=== PATIENT | female | born 1955 | race Caucasian/White ===

== ENCOUNTER 2021-08-09 01:16 | Day surgery (SDC) | payer BC, SELFPAY ==
[2021-07-23 16:07] VITALS: BMI 24.9
[2021-08-09 09:56] VITALS: BP 145/75; PULSE 94; RESP 20; TEMP 36.6; O2SAT 100; BMI 24.8
[2021-08-09] MEDS: LACTATED RINGERS 1,000 ML 150 ML IV CONT (10:04)
[2021-08-09 10:07] LABS: Glucose Point of Care 169 mg/dl (65-105)
--- NOTE | 2021-08-09 10:20 | WPDANESEPPF ---
Anes - Initial Pre Proc Eval Procedure: Operation Date: 08/09/21 11:00 Proposed Procedures p Screening Colonoscopy - Ed Nj MD Date/Time: 08/09/21 10:20 Surgeon: Ed Nj MD Pre Op Diagnosis: neoplasm screening Patient Data Age: 66 Gender: F Height: 1.68 m Weight: 69.8 kg Last Vital Signs Temp 36.6 C 08/09/21 09:56 Pulse 94 08/09/21 09:56 Resp 20 08/09/21 09:56 BP 145/75 H 08/09/21 09:56 Pulse Ox 100 08/09/21 09:56 Allergies Allergy/AdvReac Type Severity Reaction Status Date / Time metformin AdvReac Mild severe GI Verified 08/09/21 09:54 issues MORPHINE Allergy Unknown vomiting Uncoded 08/09/21 09:54 Home Medications Medication Instructions Recorded Confirmed Type amitriptyline 25 mg tablet 25 mg PO QHS 12/11/20 07/23/21 History atorvastatin 40 mg tablet 40 mg PO DAILY 12/11/20 07/23/21 History repaglinide 0.5 mg tablet 0.5 mg PO TID 12/11/20 07/23/21 History semaglutide 1 mg/dose (2 mg/1.5 1 mg SUBCUT WEEKLY 12/11/20 07/23/21 History mL) subcutaneous pen injector cholecalciferol (vitamin D3) 25 mcg PO DAILY 07/23/21 07/23/21 History [Vitamin D3] xqnhxyvo-pgz-petd-vitamin K [Adult 1 tablet PO DAILY 07/23/21 07/23/21 History Multivitamin with Iron] Laboratory Tests 08/09/21 10:03 POC Capillary Glucose 169 mg/dl H mg/dl (65-105) Patient hx anesthesia problems: none Family hx anesthesia problems: none Results Review: All pre-operative results and documents have been reviewed as part of the pre-operative evaluation. [facility] Past Medical History Medical History (Updated 08/09/21 @ 10:22 by Ed Nj MD) Asthma Diabetes Hemoglobin A1C between 7% and 9% indicating borderline diabetic control September 2020 A1cc was 7.6 Hyperlipidemia Surgical History Surgical History H/O oophorectomy left side H/O shoulder surgery R, 2003, 2019 Social History Social History Smoking status: Never smoker Living arrangements: with family Gender identity (if verbalized by the patient): Female Spiritual care concerns: No Anes - Eval Final PreProcedure Day of Procedure 08/09/21 10:20 Patient weight: normal Heart: regular rate and rhythm Lungs: clear to auscultation Airway: Mallampati scale class II Neurological: alert and oriented Last oral intake: >/= 8 hours ASA classification: III Emergent: no Anesthetic plan: proceed Anesthesia type and monitoring: general GIVS and standard monitoring Results Review: All pre-operative results and documents have been reviewed as part of the pre-operative evaluation. Informed Consent: The patient's anesthetic plan and its attendant risks and benefits were discussed with the patient/family/POA. Questions were solicited and answers provided to the satisfaction of the patient/family/POA.
--- NOTE | 2021-08-09 10:21 | P.CONGI_ITS ---
Assessment and Plan Assessment and plan (1) History of colon polyps: Code(s): Z86.010 - Personal history of colonic polyps Status: Acute Assessment and Plan: Patient has a distant history of colon polyps. She presents today for Surveillance colonoscopy. Further recommendations will be given after colonoscopy. GI Consult Note Consult date/time: 08/09/21 10:21 HPI: Jaycee Mendenhall is a 66 year old female Presents for screening colonoscopy. Patient reports a distant history of colon polyps more than 10 years ago. She reports that her current weight appetite and bowel movements are normal. She denies abdominal pain. She has had no bleeding. Family history is noncontribut ory. The patient desires neoplasia screening at this time. Review of Systems Review of Systems: All systems reviewed & are unremarkable except as noted in HPI and below PMFSH Past Medical History Medical History (Updated 08/09/21 @ 10:22 by Ed Nj MD) Asthma Diabetes Hemoglobin A1C between 7% and 9% indicating borderline diabetic control September 2020 A1cc was 7.6 Hyperlipidemia Surgical History Surgical History H/O oophorectomy left side H/O shoulder surgery R, 2003, 2019 Social History Social History Smoking status: Never smoker Living arrangements: with family Gender identity (if verbalized by the patient): Female Spiritual care concerns: No Meds Home Medications and Allergies Home Medications Medication Instructions Recorded Confirmed Type amitriptyline 25 mg tablet 25 mg PO QHS 12/11/20 07/23/21 History atorvastatin 40 mg tablet 40 mg PO DAILY 12/11/20 07/23/21 History repaglinide 0.5 mg tablet 0.5 mg PO TID 12/11/20 07/23/21 History semaglutide 1 mg/dose (2 mg/1.5 1 mg SUBCUT WEEKLY 12/11/20 07/23/21 History mL) subcutaneous pen injector cholecalciferol (vitamin D3) 25 mcg PO DAILY 07/23/21 07/23/21 History [Vitamin D3] qwrndxmm-mwh-kuph-vitamin K [Adult 1 tablet PO DAILY 07/23/21 07/23/21 History Multivitamin with Iron] Allergies Allergy/AdvReac Type Severity Reaction Status Date / Time metformin AdvReac Mild severe GI Verified 08/09/21 09:54 issues MORPHINE Allergy Unknown vomiting Uncoded 08/09/21 09:54 Vital Signs Vital Signs - 24 hr 08/09/21 09:56 Temperature 97.8 F Pulse Rate 94 Respiratory Rate 20 Blood Pressure 145/75 H Pulse Oximetry 100 Exam Narrative: Physical exam reveals patient to be alert. Vital signs stable. HEENT exam is unremarkable. Patient is anicteric. Lungs are clear to auscultation and percussion. Heart is without murmur or extra sounds. Abdominal exam bowel sounds are present soft nontender with no organomegaly. Digital external rectal exam is normal.
[2021-08-09 10:43] VITALS: BP 113/68; PULSE 76; RESP 22; O2SAT 97
[2021-08-09 10:53] VITALS: BP 107/68; PULSE 71; RESP 17; O2SAT 97
[2021-08-09 11:05] VITALS: BP 122/67; PULSE 75; RESP 18; O2SAT 100
== END 2021-08-09 11:08 | disposition home or self-care (01) ==
PROVIDERS: PCP Internal Medicine; Visit Provider Internal Medicine Gastroenterology
PROC: 0DJD8ZZ Inspection of Lower Intestinal Tract, Via Natural or Artificial Opening Endoscopic (ICD-10-PCS; CPT 45378; principal; 2021-08-09 11:00)
DX: Z12.11 Encounter for screening for malignant neoplasm of colon (principal); K64.8 Other hemorrhoids; Z86.010 Personal history of colon polyps; E11.9 Type 2 diabetes mellitus without complications; E78.5 Hyperlipidemia, unspecified; Z79.899 Other long term (current) drug therapy
CPT/HCPCS: 45378; 82948; J2704; J7120

== ENCOUNTER 2021-12-27 07:53 | Outpatient (CLI) | payer BC, SELFPAY ==
--- NOTE | ~2021-12-27 | MM_ITS ---
EXAMINATION: MM screening erica BI w ezequiel HISTORY: Screening mammogram TECHNIQUE: Craniocaudal and mediolateral oblique 3-D tomosynthesis images were obtained and synthetic 2-D images were generated. CAD analysis was submitted and interpreted. COMPARISON: December 09, 2016, July 14, 2014, March 20, 2012 bilateral screening mammogram examinations BREAST PARENCHYMAL COMPOSITION: There are scattered areas of fibroglandular density. FINDINGS: There is no evidence of suspicious mass, calcification, or architectural distortion to sugg est malignancy in either breast. There has been no suspicious interval change. IMPRESSION: 1. No mammographic evidence of malignancy. 2. Recommend routine screening mammography in one year. BI-RADS Category 1: Negative Reviewed, dictated and finalized at location A.
== END 2021-12-27 07:54 | disposition home or self-care (01) ==
PROVIDERS: PCP Internal Medicine; Visit Provider Obstetrics & Gynecology
DX: Z12.31 Encounter for screening mammogram for malignant neoplasm of breast (principal)
CPT/HCPCS: 77063; 77067

== ENCOUNTER 2022-08-12 15:34 | Emergency (ER) | payer BC, SELFPAY ==
--- NOTE | ~2022-08-12 | XR_ITS ---
XR chest 2V 08/12/2022 16:29 Indication: Nonproductive cough Procedure: 2 view chest Comparison: No prior studies for comparison. Findings: Heart size normal. No focal air space disease, pulmonary edema, pleural effusion or suspect ed pneumothorax. There is a calcified granuloma in the left mid thorax. Impression: 1: No acute cardiopulmonary disease. Reviewed, dictated and finalized at location A. NESS DEVELOPMENT RECRUITER Impression: 1: No acute cardiopulmonary disease.
[2022-08-12 16:07] VITALS: BP 134/73; PULSE 87; RESP 18; TEMP 36.2; O2SAT 99
--- NOTE | 2022-08-12 16:12 | ED.URI ---
HPI - URI/Sore Throat General Chief Complaint: Upper Respiratory Infection Stated Complaint: cough,sorethroat Time Seen by Provider: 08/12/22 16:12 Source: patient Mode of arrival: ambulatory Limitations: no limitations History of Present Illness HPI Narrative: 67-year-old female presents with complaint of cough for 3 weeks. Reports that cough is dry, worse at night Or with activities. Reports history of seasonal asthma. Last had a Symbicort inhaler approximately 2 years ago. Denies shortness of breath. Using Delsym with no relief of cough. All systems reviewed and negative except as noted above. Related Data Home Medications Medication Instructions Recorded Confirmed amitriptyline 25 mg tablet 25 mg PO QHS 12/11/20 08/12/22 atorvastatin 40 mg tablet 40 mg PO DAILY 12/11/20 08/12/22 repaglinide 0.5 mg tablet 0.5 mg PO TID 12/11/20 08/12/22 semaglutide 1 mg/dose (2 mg/1.5 1 mg subcut WEEKLY 12/11/20 08/12/22 mL) subcutaneous pen injector (Ozempic) cholecalciferol (vitamin D3) 25 25 mcg PO DAILY 07/23/21 08/12/22 mcg (1,000 unit) tablet (Vitamin D3) multivitamin h-fpqbyovt-cdoprtu 1 tablet PO DAILY 07/23/21 08/12/22 fumarate 18 mg-vitamin K 25 mcg tablet Allergies Allergy/AdvReac Type Severity Reaction Status Date / Time metformin AdvReac Intermediate severe GI Verified 08/12/22 15:50 issues MORPHINE AdvReac Intermediate vomiting Uncoded 08/12/22 15:50 Review of Systems Review of Systems: CONSTITUTIONAL: Denies fever, chills, or sweats. EYES: Denies visual changes, redness, or discharge. ENT: Denies rhinorrhea, congestion, sore throat, or otalgia. CARDIOVASCULAR: Denies chest pain, palpitations, or edema. RESPIRATORY: Reports dry cough. Denies dyspnea. GASTROINTESTINAL: Denies abdominal pain, nausea, vomiting, or diarrhea. GENITOURINARY: Denies dysuria or hematuria. SKIN: Denies rash or itching. MUSCULOSKELETAL: Denies back pain, joint pain, or myalgia. NEUROLOGIC: Denies headache, numbness, or weakness. PSYCHIATRIC: Denies anxiety or depression. All other systems reviewed are negative, except as documented in HPI. [facility] Past Medical History Medical History Asthma Diabetes Hemoglobin A1C between 7% and 9% indicating borderline diabetic control September 2020 A1cc was 7.6 Hyperlipidemia Olecranon bursitis, left elbow Surgical History Surgical History H/O oophorectomy left side H/O shoulder surgery R, 2019 Social History Social History Smoking status: Never smoker Gender identity (if verbalized by the patient): Female Spiritual care concerns: No Comments At time of signature, agree with nursing past medical, surgical, social and family history. There is no relevant family history pertinent to the presenting complaint. Exam Narrative: GENERAL: This is a well-nourished, well-developed patient, in no apparent distress. HEAD: normocephalic, atraumatic. EYES: PERRL. Sclera clear/white. Vision is grossly intact. EARS: External ears normal NOSE: External nose normal NECK: Neck supple, non-tender without lymphadenopathy, masses or thyromegaly. CARDIOVASCULAR: Regular rate and rhythm without murmurs, gallops, or rubs. RESPIRATORY: Clear to auscultation. Breath sounds equal bilaterally. No wheezes, rales, or rhonchi. SKIN: warm, Dry, intact with no suspicious lesions or rash, good texture and turgor. NEURO: awake, alert, and oriented to person, place and time. There were no obvious focal neurologic abnormalities. EXTREMITIES: No joint tenderness, effusion, or edema noted. Course Course Level of Care: Express Care Visit Vital Signs Vital signs: Vital Signs Temperature 36.2 C L 08/12/22 16:07 Pulse Rate 87 08/12/22 16:07 Respiratory Rate 18 08/12/22 16:07 Blood Pressure 134/73
== END 2022-08-12 16:50 | disposition home or self-care (01) ==
PROVIDERS: Emergency Provider Nurse Practitioner Family; PCP Internal Medicine
DX: J20.9 Acute bronchitis, unspecified (principal); J45.909 Unspecified asthma, uncomplicated; E11.9 Type 2 diabetes mellitus without complications; E78.5 Hyperlipidemia, unspecified
CPT/HCPCS: 71046; 99213; G0463

== ENCOUNTER 2025-06-21 14:35 | Outpatient (CLI) | payer BC, SELFPAY ==
--- OUTSIDE RECORDS SUMMARY | 2022-06-03 03:00 | XMS_ITS | Continuity of Care Document ---
Author Organization [facility] Address [address] [place] [address] Phone Care Team Providers Care Dip Lube Operator Name Role Phone Uyen Carlin Allergies, Adverse Reactions, Alerts Substance Reaction Status Criticality morphine Active No Information Medications Medication Instructions Dosage Effective Dates (start - stop) Status Comments repaglinide 0.5 mg tablet - Active celecoxib 200 mg capsule - Active atorvastatin 20 mg tablet - Active amitriptyline 25 mg tablet - Active Boostrix Tdap 2.5 Lf unit-8 mcg-5 Lf/0.5 mL intramuscular syringe - Active Ultracet 37.5 mg-325 mg tablet take 1 tablet by oral route every 4 - 6 hours as needed, for up to 5 days; do not exceed 8 tablets in 24hrs as needed for pain 1 tablet - No Longer Active Surgery date: May 19, 2022. Ultracet 37.5 mg-325 mg tablet take 1 tablet by oral route every 4 - 6 hours as needed, for up to 5 days; do not exceed 8 tablets in 24hrs as needed for pain 1 tablet - No Longer Active Surgery date: April 29, 2022. Procedures Procedure Date X-ray exam finger(s), minimum 2 views Se p-27-2022 Global/Postop followup visit [facility] She[facility] X-ray exam finger(s), minimum 2 views Au Office/outpatient visit,gil ross 2021 Advance Directives Directive Yes / No Effective Date File Name No Information Encounters Encounter Description Practice Location Reason(s) For Visit Diagnoses Date Provider Providers Copied on Encounter [facility], [address], [id number], [place] tel:[phone] [facility] Right thumb (chief complaint) Ganglion, right hand May- 2 Guadalupe Qiu. [address], [id number], [place]. tel:[phone] [facility], [address], [id number], [place] tel:[phone] [facility] No Information May- 2 Linda Drake. [address] [address], [place], [place], [id number], [place]. tel:[phone] [facility], [address], [id number], [place] tel:[phone] [facility] No Information May- 2 Linda Drake. [address], [id number], [place]. tel:[phone] Office/outpat ient visit,gil [facility], [address] [address], [place], [place], [id number], [place] tel:[phone] [facility] Right thumb (chief complaint) Pain in right finger(s)Thelma glion, right hand 2 Guadalupe Qiu. [address] [facility] [address], [place], [place], [id number], [place]. tel:[phone] Family History Family Member Type Diagnosis Age At Onset No Information Immunizations Vaccine Date Status Comments No Known Immunization histor y Payers Payer name Insurance type Covered constitution party ID Gilbert long(s) Albert Briceño [facility] [id number] Social History Type Description Quantity Date Captured Comments Alcohol Use Details Unknown Caffeine Use Details Unknown Tobacco Use Status No Information Smoking Status No Information Sex Female Chief Complaint And Reason For Visit From encounter dated '06/03/2022 08:00'. Right thumb (chief complaint). Description: Jaycee is 2 weeks out from an excision of a right thumb mucous ganglion cyst on May 19, 2022. She returns for follow-up. Reason For Referral Reason For Referral No Information History Of Present Illness Encounter Date Complaint History Of Prese nt Illness Right thumb Jaycee is 2 weeks out from an excision of a right thumb mucous ganglion cyst on May 19, 2022. She returns for follow-up. Right thumb Jaycee is seen in the office today as a new patient. She presents with a right thumb cyst. She first noticed the mass in Fall 2020. 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 In September 2021 he cauterized the cyst sac and sutured the wound closed. The cyst returned a few weeks later. The cyst intermittently becomes erythematous and painful. The size fluctuates. The mass is painful if she bumps it. She does not recall a specific injury. She presents to the office today for evaluation and treatment of her right thumb cyst. Functional Status Date Functional Assessmen t No Information Instructions Date Instruction Additional Infor mation No Information Assessments Type Assessment Date assessment Ganglion, right hand impression The sutures were rem raisa in the office today. She may advancer her activities as tolerated. She will return to the office as needed. She may call with any questions or concerns. Patient Care Teams Name Effective Dates (start - stop) Status Members No Information
--- OUTSIDE RECORDS SUMMARY | 2024-02-08 05:00 | XMS_ITS ---
[facility] Address [address] [place] [address] Care Team Providers Care Director Of Sustainability Programs Name Role Phone Dr. Zeke Bennett Primary Care Provider [phone] REASON FOR VISIT 3 month f/u Social History Sex Assigned At : Social History Observation Description Sex Assigned At Female Encounters Encounter Location Date Provider Diagnosis [address] [address] 02/08/2024 Zeke Bennett Plan Of Treatment Next Appt Details Provider Name:Zeke colón, 10/02/2025 02:30:00 PM, [address] [place] [address], [phone], Progress Notes * Addie ARZATEaDOB:1955 ( 70 yo F)Acc No.[id number]:02/08/2024 Annual Physical Patient: Jaycee MORATAYA Provider: Carlos Bennett DO :1955 A ge:69 Y S ex:Female Date:02/08/2024 Address:[address] [place] [id number] Subjective: * Chief Complaints: * 1 . 3 month f/u. * Medical History: * Implants: Objective: * Vitals: Assessment: Plan: * Treatment: * Billing Information: * Visit Code: * Procedure Codes: Care Plan Details* * Electronic signature of Dr. Zeke Bennett DO on 06/21/2025 at 04:52 PM CDT Sign off status: Pending * Provider: Carlos Bennett DO Date: 0 02/08/2024 Generated for Bryant mcdonald/Sandra/Alireza on: 1 04:52 PM CDT
--- NOTE | ~2025-06-21 | MM_ITS ---
EXAMINATION: MM screening erica BI w ezequiel HISTORY: Screening mammogram TECHNIQUE: Craniocaudal and mediolateral oblique 3-D tomosynthesis images including implant displaced views were obtained and synthetic 2-D images were generated. CAD analysis was submitted and interpreted. COMPARISON: 12/27/2021 BREAST PARENCHYMAL COMPOSITION: There are scattered areas of fibroglandular density. FINDINGS: There is no evidence of suspicious mass, calcification, or architectural distortion in either breast to suggest malignancy. There has been no significant interval change. IMPRESSION: 1. No mammographic evidence of malignancy. Recommend routine screening mammography in one year. BI-RADS Category 1: Negative 11 Reviewed, dictated and finalized at location Q. IMPRESSION: 1. No mammographic evidence of malignancy. Recommend routine screening mammogra phy in one year. BI-RADS Category 1: Negative 11
--- OUTSIDE RECORDS SUMMARY | 2025-06-21 16:52 | XMS_ITS | Encounter Summary ---
Author Organization [facility] Address [address] [place] [address] Care Team Providers Care Control Systems Technician Name Role Phone Maninder Danielson MD Primary Care Provider U Betty Tomas NP Primary Care Provider [phone] Encounter Details Date Type Department Care Team (Late st Contact Info) Description 11/29/[address] [facility] [id number] [place] [phone] [facility], [facility] Provider 90 day supply Social History Tobacco Use Types Packs/Day Years Used Date Smoking Tobacco: Former Cigarettes 0.3 8 1 979 - 1987 Smokeless Tobacco: Never Alcohol Use Standard Drinks/Week Comments Yes 0 (1 standard drink = 0.6 oz pur e alcohol) occassionally PHQ-2 Answer Date Recorded PHQ-2 Score - If the patient scores above 3, please move on to questions 3-9 0 09/12/2020 Education Answer Date Recorded What is the highest level of school you have completed or the highest degree you have received? 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
--- OUTSIDE RECORDS SUMMARY | 2025-06-21 16:52 | XMS_ITS | Clinical Summary ---
Author Organization [facility] Address [address] [place] [address] Care Team Providers Care Brass Plater Name Role Phone Betty Pinto NP Primary Care Provider [phone] Allergies Active Allergy Reactions Criticality Noted Date Comments Metformin Diarrhea 12/01/2014 Morphine Nausea and Vomiting Medium 10/30/2012 Medications repaglinide 0.5 MG tabletIndications:U ncontrolled type 2 diabetes mellitus with hyperglycemia ([facility] HHS/HCC) TAKE 1 TABLET(0.5 MG) BY MOUTH THREE TIMES DAILY BEFORE MEALS 270 tablet 2 Active OZEMPIC, 1 MG/DOSE, 4 MG/3ML Solution Pen-injectorIndicat ions:Uncontrolled type 2 diabetes mellitus with hyperglycemia ([facility] HHS/HCC) Inject 1 mg into the skin once a week. 9 mL 2 Active ATORVASTATIN 20 MG tabletIndications:M ixed hyperlipidemia TAKE 1 TABLET(20 MG) BY MOUTH DAILY 90 tablet 2 Active AMITRIPTYLINE 25 MG tabletIndications:U ncontrolled type 2 diabetes mellitus with hyperglycemia ([facility] HHS/HCC) TAKE 1 TABLET(25 MG) BY MOUTH EVERY NIGHT AT BEDTIME 90 tablet 2 Active Active Problems Problem Noted Date Diagnosed Date Fatigue, unspecified type 09/12/2020 BMI 27.0-27.9,adult 04/01/2019 Hyperlipidemia 05/23/2013 Type II diabetes mellitus, uncontrolled 05/23/20 13 Irritable bowel syndrome with diarrhea 3 Resolved Problems Problem Noted Date Diagnosed Date Resolved Date Health care maintenance 02/26/202102/06 Immunizations Immunization Administration Dates Next Due Afluria 36 MONTHS+ (Prefille d Syringe IIV4) 06/25/2019 Fluzone Adult - >Age 3 (Pref illed Syringe) 09/12/2020(Deferred: Patient Refused) Influenza 3 yrs + Preservati ve Free (Fluzone) 06/25/2019 Influenza Adult (Generic) 06/04/2018,08/15/2016, 06/23/2014 Influenza Virus, Split 6-35 Mo 08/22/2017 MODERNA COVID-19 (12+) MRNA, LNP-S, PF, 100 MCG/ 0.5 ML DOSE 11/04/2020,09/27/2020 Shingrix 04/01/2020,10/16/2019 Tdap (Generic) 07/21/2010 Family History Medical History Relation Comments Pulmonary Fibrosis Mother Relation Status Comments Father Mother Social History Tobacco Use Types Packs/Day Years Used Date Smoking Tobacco: Former Cigarettes 0.3 8 1 979 - 1986 Smokeless Tobacco: Never Tobacco Cessation:Counseling Given: No Alcohol Use Standard Drinks/Week Comments Yes 0 [...] Sex Assigned at Female 07/19/2018 3:31 PM REFRIGERATED NATIONAL TRUCK DRIVER Legal Sex Female 7:54 PM CDT Gender Identity Female 07/19/2018 3:31 PM REFRIGERATED NATIONAL TRUCK DRIVER Sexual Orientation Not on file 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 file Not on file Not on file Last Filed Vital Signs Vital Sign Reading Time Taken Comments Blood Pressure 134/78 08/26/2021 10:00 AM REFRIGERATED NATIONAL TRUCK DRIVER Pulse 78 08/26/2021 10:00 AM REFRIGERATED NATIONAL TRUCK DRIVER Temperature 36.2 C (97.2 F) 08/26/2021 10:00 AM REFRIGERATED NATIONAL TRUCK DRIVER Respiratory Rate 20 08/26/2021 10:00 AM REFRIGERATED NATIONAL TRUCK DRIVER Oxygen Saturation 98% 08/26/2021 10:00 AM REFRIGERATED NATIONAL TRUCK DRIVER Inhaled Oxygen Concentration - - Weight 73.6 kg (162 lb 3.2 oz) 08/26/2021 10:00 AM REFRIGERATED NATIONAL TRUCK DRIVER Height 167.6 cm (5' 6) 08/26/2021 10:00 AM REFRIGERATED NATIONAL TRUCK DRIVER Body Mass Index 26.18 08/26/2021 10:00 AM REFRIGERATED NATIONAL TRUCK DRIVER Plan of Treatment Health Maintenance Due Date Last Done Comments Colorectal Cancer Screening Colonoscopy (10 Years) 1957 Kidney Health Evaluation 1955 Hepatitis C 1975 Pneumococcal Vaccine: 50+ Years (1 of 2 - PCV) 01/08/1976 DTaP, Tdap and Td Vaccines (2 - Td or Tdap) 07/21/2020 07/21/2010 Diabetes: Retinopathy Eye Exam 06/23/2021 06/23/2019 Dexa Scan (General) 2022 Hemoglobin A1C 02/24/2022 08/26/2021, 0 02/2021, 06/11/2020, Additional history exists Lipid Panel 03/18/2022 03/18/2021, 0 04/2021, 05/31/2018 Mammogram Screening 12/28/2023 12/27/2021 COVID-19 Vaccine ( season) 2025 08/02/2021, 11/04/2020, 09/27/2020 Influenza Adult (#1) 2025 06/15/2021, 06/25/2019, 06/04/2018, Additional history exists RSV Immunization or 60+ Years (1 - 1-dose 75+ series) 01/08/2032 Zoster Vaccines Completed 04/01/2020, 10/16/2019 Meningococcal B Vaccine Aged Out No l onger eligible based on patient's age to complete this topic Meningococcal Vaccine Aged Out No jennifer yanira eligible based on patient's age to complete this topic RSV Immunizations Under 20 Months Aged Out No longer eligible based on patient's age to complete this topic Procedures Procedure Name Priority Date/Time Associated Diagnosis Comments MAMMOGRAM GENERIC (SCAN ORDER) 12/27/2021 HEMOGLOBIN, GLYCOSYLATED Routine 08/26/2021 Uncontrolled type 2 diabetes mellitus with hyperglycemia LIPID PANEL Routine 03/18/2021 7:29 AM CDT Mixed hyperlipidemia DILATED EYE EXAM (SCAN) Routine 06/23/2019 from Last 3 Months or Most Recently Relevant to Health Maintenance Results * MAMMOGRAM GENERIC (12/27/2021) Anatomical Region Laterality Modality Other 12/27/2021 Narrative 12/27/2021 Ordered by an unspecified provider. us Documents Scanned SCANNING Final Result * HEMOGLOBIN, GLYCOSYLATED (08/26/2021) HGB A1C 6.4 % [id number] [facility] 08/26/2021 us Maninder Danielson MD LABORATORY Final Re sult Performing Organization Address City/State/[facility] Co de Phone Number -[phone] [facility] [address] [place] [address], [place] [phone] * LIPID PANEL (03/18/2021 7:29 AM CDT) CHOLESTEROL 174 <200.0 MG/DL 03/18/2021 3:19 PM CDT [facility] TRIGLYCERIDES 75 <150 MG/DL 03/18/2021 3:19 PM CDT [facility] HDL 61 >40.0 MG/DL 03/18/2021 3:19 PM T [facility] LDL (CALCULATED) 98 <100 MG/DL 03/18/20 3:19 PM CDT [facility] NON HDL CHOLESTEROL 113 <130 MG/DL 03/18 3:19 PM CDT [facility] CHOL/HDL RATIO 2.9 0.0 - 4.5 03/18/2021 3:19 PM CDT [facility] VLDL CALCULATION 15 5 - 55 MG/DL 03/18/2021 3:19 PM CDT [facility] LIPID INTERPRETATION 03/18/2021 3:19 PM CDT [facility] Comment: NIH CONCENSUS REPORT RECOMMENDATIONS: ADULT CHILD LOW RISK: CHOLESTEROL <200 <170 TRIGLYCERIDE <150 --- HDL >=60 --- LDL <100 <110 BORDERLINE: CHOLESTEROL 200-239 170-199 TRIGLYCERIDE 150-199 --- HDL 40-59 --- LDL 100-159 110-129 HIGH RISK: CHOLESTEROL >=240 >=200 TRIGLYCERIDE >=200 --- HDL <40 --- LDL >=160 >=130 03/18/2021 7:29 AM CDT us Maninder Danielson MD LABORATORY Final Re sult [facility] [address] [place] [address], * DILATED EYE EXAM (06/23/2019) us Documents Scanned SCANNING Edited Result - Final from Last 3 Months or Most Recently Relevant to Health Maintenance Insurance Care Teams Brass Plater Relationship Specialty Start Date End Date Betty Pinto, PACKAGE [employer] [address] [facility] [address] [place] [address] PCP - General Nurse Practitioner Family 12/12/22
--- OUTSIDE RECORDS SUMMARY | 2025-06-21 16:53 | XMS_ITS | Encounter Summary ---
Author Organization [facility] Address [address] [place] [address] Care Team Providers Care Television Announcer Name Role Phone Maninder Danielson MD Primary Care Provider U Betty Tomas EMERGENCY DEPARTMENT RN Primary Care Provider [phone] Encounter Details Date Type Department Care Team (Late st Contact Info) Description 05/16/2020 Prep for Procedure [facility] [address] [place], [place] [phone] Enzo Jerome MD [address] [place] [address] [phone] Social History Tobacco Use Types Packs/Day Years Used Date Smoking Tobacco: Former Cigarettes 0.3 8 1 979 - 1987 Smokeless Tobacco: Never Alcohol Use Standard Drinks/Week Comments Yes 0 (1 standard drink = 0.6 oz pur e alcohol) occassionally PHQ-2 Answer Date Recorded PHQ-2 Score 0 08/14/2019 Education Answer Date Recorded What is the highest level of school you have completed or the highest degree you have received? 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 A negative result does not rule out the possibility of COVID-19 and should not be used as the sole basis for treatment or patient management decisions. If COVID-19 is still suspected, based on exposure history together with other clinical findings, re-testing should be considered in consultation with public health authorities. Laboratory test results should always be considered in the context of clinical observations and epidemiological data in making a final diagnosis and patient management decisions. Please review the Fact Sheets and FDA authorized labeling available for health care providers and patients using the following websites: https://www.[employer]inPerfect.Medlert/home/Covid-19/HCP/NAAT/fact-sheet2 https://www.[employer].Medlert/home/Covid-19/Patients/NAAT/ fact-sheet2 This test has been authorized by the FDA under an Emergency Use Authorization (EUA) for use by authorized laboratories. Due to the current public health emergency, [facility] is receiving a high volume of samples from a wide variety of swabs and media for COVID-19 testing. In order to serve patients during this public health crisis, samples from appropriate clinical sources are being tested. Negative test results derived from specimens received in non-commercially manufactured viral collection and transport media, or in media and sample collection kits not yet authorized by FDA for COVID-19 testing should be cautiously evaluated and the patient potentially subjected to extra precautions such as additional clinical monitoring, including collection of an additional specimen. Methodology: Nucleic Acid Amplification Test (NAAT) includes PCR or TMA Additional information about COVID-19 can be found at the [facility] website: www.[employer]ield[employer].com/Covid19. Test performed at [facility] [address] [place] [address] Director: AGAPITO SHARMA DO,MPH FIRST TEST UNKNOWN 05/20/2020 7:[address] [facility] EMPLOYED IN HEALTHCARE NO 05/20/2020 7:[address] [facility] SYMPTOMATIC DEFINED BY CDC UNKNOWN 05/20/2020 7:[address] [facility] HOSPITALIZATION STATUS NO 05/20/2020 7:[address] [facility] PATIENT IN ICU NO 05/20/2020 7:[address] [facility] RESIDENT OF [facility] UNKNOWN 05/20/2020 7:[address] [facility] NO 05/20/2020 7:[address] [facility] PATIENT'S RACE WHITE OR 05/20/2020 7:[address] [facility] ETHNICITY NONHISPANIC 05/20/2020 7:[address] [facility] SOURCE (QST) NASOPHARYNGEAL SWAB 05/20/2020 7:[address] [facility] NASOPHARYNGEAL SWAB / Unknown 05/20/2020 7:15 AM CDT us Enzo Jerome MD MICROBIOLOGY - GENERAL ORDERA [facility] Final Result [facility] [address] [place] [address], [place] [phone] [facility] [address] [place] [address], documented in this encounter Visit Diagnoses Diagnosis Preop testing- Primary Preoperative examination, unspecified documented in this encounter Additional Health Concerns Infection Onset Date Last Indicated Resolved Time COVID-19 Rule Out 05/20/2020 05/20/2020 05/21/2020 12:21 PM CDT COVID-19 Rule Out 05/25/2020 05/25/2020 05/26/2020 7:06 PM CDT documented as of this encounter Care Teams Television Announcer Relationship Specialty Start Date End Date Maninder Danielson MD PCP - General INTERNAL MEDICINE 07/19/18 12/11/22 [place] [address] [address] [place] [phone] PCP - General Nurse Practitioner Family 12/12/22 documented as of this encounter
--- OUTSIDE RECORDS SUMMARY | 2025-06-21 16:53 | XMS_ITS | Patient Health Record ---
Author Organization [facility] Address [address] [place] [address] Care Team Providers Care Real Estate Closing Coordinator Name Role Phone Dr. Zeke Bennett Primary Care Provider Allergies Allergen (clinical drug ingredient) Drug/Non Drug Allergy documented on EMR Reaction Allergy Type Onset Date Status nitrofurantoin, macrocrystals / nitrofurantoin, monohydrate Macrobid disequilibrium Drug Allergy Active metformin metFORMIN HCl diarrhea Drug Allergy Act jairo Results Component Value Reference Range Notes Comp. Metabolic Panel (14) Reviewed date:10/07/2024 06:42:26 AM Interpretation: Performing Lab:[facility] [place], [address] [facility], Phone - [phone], Director - PhDRicchiuti Notes/Report: Glucose 107 70-99 mg/dL BUN 25 8-27 mg/dL Creatinine 0.68 0.57-1.00 mg/dL eGFR 95 >59 mL/min/1.73 BUN/Creatinine Ratio 37 12-28 Sodium 140 134-144 mmol/L Potassium 4.2 3.5-5.2 mmol/L Chloride 100 96-106 mmol/L Carbon Dioxide, Total 24 20-29 mmol/L Calcium 9.9 8.7-10.3 mg/dL Protein, Total 6.6 6.0-8.5 g/dL Albumin 4.6 3.9-4.9 g/dL Globulin, Total 2.0 1.5-4.5 g/dL Bilirubin, Total 0.5 0.0-1.2 mg/dL Alkaline Phosphatase 76 44-121 IU/L AST (SGOT) 19 0-40 IU/L ALT (SGPT) 15 0-32 IU/L Hemoglobin A1C Reviewed date:10/07/2024 06:42:26 AM Interpretation: Performing Lab: Notes/Report: HbA1c 6.6 Hemoglobin A1C Reviewed date:04/04/2025 02:30:25 PM Interpretation: Performing Lab: Notes/Report: HbA1c 6.5 Comp. Metabolic Panel (14) Reviewed date:04/06/2025 07:19:01 AM Interpretation: Performing Lab:[facility], [address] [place], [place] [address]ox [facility], Phone - [phone], Director - [facility] Notes/Report: Glucose 102 70-99 mg/dL BUN 22 8-27 mg/dL Creatinine 0.65 0.57-1.00 mg/dL eGFR 96 >59 mL/min/1.73 BUN/Creatinine Ratio 34 12-28 Sodium 139 134-144 mmol/L Potassium 4.0 3.5-5.2 mmol/L Chloride 101 96-106 mmol/L Carbon Dioxide, Total 23 20-29 mmol/L Calcium 9.9 8.7-10.3 mg/dL Protein, Total 6.7 6.0-8.5 g/dL Albumin 4.7 3.9-4.9 g/dL Globulin, Total 2.0 1.5-4.5 g/dL Bilirubin, Total 0.6 0.0-1.2 mg/dL Alkaline Phosphatase 71 44-121 IU/L AST (SGOT) 21 0-40 IU/L ALT (SGPT) 16 0-32 IU/L Lipid Panel Reviewed date:04/06/2025 07:19:01 AM Interpretation: Performing Lab:[facility] [place] [address] [place], [place] [address]ox [facility], Phone - [phone], Director - [facility] Notes/Report: Cholesterol, Total 168 100-199 mg/dL Triglycerides 65 0-149 mg/dL HDL Cholesterol 65 >39 mg/dL VLDL Cholesterol José Miguel 13 5-40 mg/dL LDL Chol Calc ([facility]) 90 0-99 mg/dL LDL Calc Comment: MANAGER MACHINE Microalb/Creat Ratio, Randm Ur Reviewed date:04/06/2025 07:19:01 AM Interpretation: Performing Lab:[facility], [facility], Phone - [phone], Director - [facility] Notes/Report: Creatinine, Urine 54.7 Not Estab. mg/dL Albumin, Urine 5.7 Not Estab. ug/mL Alb/Creat Ratio 10 0-29 mg/g creat Normal: 0 - 29 Moderately increased: 30 - 300 Severely increased: >300 CBC With Differential/Platel et Reviewed date:04/06/2025 07:19:01 AM Interpretation: Performing Lab:[facility], [address] [facility], [place], Phone - [phone], Director - [facility] Notes/Report: WBC 5.7 3.4-10.8 x10E3/uL RBC 3.65 3.77-5.28 x10E6/uL Hemoglobin 11.6 11.1-15.9 g/dL Hematocrit 34.5 34.0-46.6 % MCV 95 79-97 fL MCH 31.8 26.6-33.0 pg MCHC 33.6 31.5-35.7 g/dL RDW 12.3 11.7-15.4 % Platelets 349 150-450 x10E3/uL Neutrophils 52 Not Estab. % Lymphs 36 Not Estab. % Monocytes 10 Not Estab. % Eos 1 Not Estab. % Basos 1 Not Estab. % Immature Cells MANAGER MACHINE Neutrophils (Absolute) 2.9 1.4-7.0 x10E3/uL Lymphs (Absolute) 2.1 0.7-3.1 x10E3/uL Monocytes(Absolute) 0.6 0.1-0.9 x10E3/uL Eos (Absolute) 0.1 0.0-0.4 x10E3/uL Baso (Absolute) 0.0 0.0-0.2 x10E3/uL Immature Granulocytes 0 Not Estab. % Immature Grans (Abs) 0.0 0.0-0.1 x10E3/uL NRBC MANAGER MACHINE Hematology Comments: MANAGER MACHINE Reason For Referral No Information Medications Medication SIG (Take, Route, Frequency, Duration) Notes Start Date End Date Status FreeStyle Nayeli 2 Sensor - USE DIRECTED EVERY TWO WEEKS; Duration: 84 Active Repaglinide 0.5 MG 1 tablet 15 to 30 mi nutes before meals Orally Three times a day Active Atorvastatin Calcium 20 MG Take 1 tablet by mouth once daily; Duration: 90 Active Mounjaro 15 MG/0.5ML inject 0.5mL Subcut aneous weekly; Duration: 84 days 03/11/2026 Active Atorvastatin Calcium 20 MG 1 tablet Orally Once a day Active Immunizations Vaccine Route Administration Date Status Comme nts Prevnar 20 Unknown 11/12/2022 Administered Social History Tobacco Use: Social History Observation Description Date Details (start date - stop date) Former Smoker NA - NA Sex Assigned At : Social History Observation Description Sex Assigned At Female Tobacco Use/Smoking Question Answer Notes Smoking Status: former smoker How long has it been since you last smoked? > 10 years Alcohol Screen (Audit-C) Question Answer Notes Did you have a drink contain ing alcohol in the past year? Yes How often did you have 6 or more drinks on one occasion in the past year? Never (0 point) How many drinks did you have on a typical day when you were drinking in the past year? 1 or 2 drinks (0 point) How often did you have a dri nk containing alcohol in the past year? Monthly or less (1 point) Tobacco use other than smoking: Question Answer Notes Are you an other tobacco user? No Problems Problem Type SNOMED Code ICD Code Onset Dates Problem Status W/U Status Risk Notes Problem Irritable bowel syndrome with diarrhea (797952887) Irritable bowel syndrome with diarrhea (K58.0) Active confirmed Problem Type II diabetes mellitus without complication (109536947) Type 2 diabetes mellitus without complication, without long-term current use of insulin (E11.9) Active confirmed Problem Hyperlipidaemia (30680478) Hyperlipidemia, unspecified hyperlipidemia type (E78.5) Active confirmed Problem Restless legs (39950354) Restless leg (G25.81) Active confirmed Problem Congenital deformity of spine (487651614) Congenital spinal deformity (Q67.5) Active confirmed Problem Cyst of thyroid (02201249) Thyroid cyst (E04.1) Active confirmed Vital Signs Heart Rate 76 /min 04/04/2025 Temperature 98.0 degrees Fahrenheit 04/04/2025 Respiratory Rate 14 /min 04/04/2025 Oximetry 97 % 04/04/2025 Blood pressure diastolic 72 mm Hg 04/04/2025 Height 65 in 04/04/2025 Blood pressure systolic 116 mm Hg 04/04/2025 Weight 156.0 lbs 04/04/2025 BMI 25.96 kg/m2 04/04/2025 Encounters Encounter Location Date Provider Diagnosis [address] [address] [facility] Congenital spinal deformity Q67.5 ; Type 2 diabetes mellitus without complication, without long-term current use of insulin E11.9 ; Thyroid cyst E04.1 ; Irritable bowel syndrome with diarrhea K58.0 ; Hyperlipidemia, unspecified hyperlipidemia type E78.5 ; Restless leg G25.81 and Encounter for general adult medical examination with abnormal findings Z00.[address] [address] 04/04/2025 [facility] Congenital spinal deformity Q67.5 ; Type 2 diabetes mellitus without complication, without long-term current use of insulin E11.9 ; Thyroid cyst E04.1 ; Irritable bowel syndrome with diarrhea K58.0 ; Hyperlipidemia, unspecified hyperlipidemia type E78.5 ; Restless leg G25.81 and Encounter for general adult medical examination with abnormal findings Z00.[address] [address] 10/07/[address] [address] 08/04/2024 [facility] Hyperlipidemia, unspecified hyperlipidemia type E78.[address] [address] 10/07/[address] [address] 11/03/2024 [facility]. [address] [place] [phone] 04/08/2025 [facility] Type 2 diabetes mellitus without complication, without long-term current use of insulin E11.9 [facility]. [address] [place] [phone] 04/08/2025 [facility] Assessments Encounter Date Diagnosis (ICD Code) Assessment Notes Treatment Notes Treatment Clinical Notes Section Notes 08/04/2024 Hyperlipidemia, unspecified hyperlipidemia type (ICD-10 - E78.5) 10/05/2024 Congenital spinal deformity (ICD-10 - Q67.5) 04/08/2025 Type 2 diabetes mellitus without complication, without long-term current use of insulin (ICD-10 - E11.9) 04/04/2025 Congenital spinal deformity (ICD-10 - Q67.5) 04/04/2025 Type 2 diabetes mellitus without complication, without long-term current use of insulin (ICD-10 - E11.9) 10/05/2024 Type 2 diabetes mellitus without complication, without long-term current use of insulin (ICD-10 - E11.9) 10/05/2024 Thyroid cyst (ICD-10 - E04.1) Did not require follow-up due to size 04/04/2025 Thyroid cyst (ICD-10 - E04.1) Did not require follow-up due to size 04/04/2025 Irritable bowel syndrome with diarrhea (ICD-10 - K58.0) Under good control after stopping the amitriptyline 10/05/2024 Irritable bowel syndrome with diarrhea (ICD-10 - K58.0) Under good control after stopping the amitriptyline 10/05/2024 Hyperlipidemia, unspecified hyperlipidemia type (ICD-10 - E78.5) 04/04/2025 Hyperlipidemia, unspecified hyperlipidemia type (ICD-10 - E78.5) 04/04/2025 Restless leg (ICD-10 - G25.81) 10/05/2024 Restless leg (ICD-10 - G25.81) 10/05/2024 Encounter for general adult medical examination with abnormal findings (ICD-10 - Z00.01) 04/04/2025 Encounter for general adult medical examination with abnormal findings (ICD-10 - Z00.01) Plan Of Treatment Next Appt Details Provider Name:Zeke colón, 10/02/2025 02:30:00 PM, [address] [place], [address], Insurance Providers Payer Name Payer Address Payer Phone Subscriber Number Group Number Insured Name Patient Relationship to Insured Coverage Start Date Coverage End Date [facility] [address] [place] [phone] [id number] Jaycee Mendenhall Self - patient is the insured Medical (General) History Medical History History ICD Code Colonoscopy: 07/2022 Mammogram: 01/2022 Pap: 01/2022 AIDS/HIV: No alcohol abuse: No acid reflux: No allergies, food: No allergies, seasonal: Yes anemia: Yes arthritis: No asthma: Yes attention deficit disorder: No anxiety: No bipolar disorder: No bladder infections, chronic: No : No chronic diarrhea: Yes cough, chronic: No dementia: No depression: No deep vein thrombosis: No diabetes mellitus: Yes drug abuse: No eating disorder: No gout: No insomnia: No inflammatory bowel disease: No myocardial infarction: No neuropathy: No panic attacks: No osteoporosis: No pulmonary embolism: No rheumatoid arthritis: No seizures: No sleep apnea: No stroke: No white coat hypertension: No Surgical History Surgery Date(Month/Year) unilateral salpingoophorectomy (left) rotator cuff repair right shoulder x2
--- OUTSIDE RECORDS SUMMARY | 2025-06-21 16:53 | XMS_ITS | Encounter Summary ---
Author Organization [facility] Address [address] [place] [id number] Care Team Providers Care Electro Mechanical Assembler Name Role Phone Maninder Danielson MD Primary Care Provider U Betty Tomas SUPERVISOR PRESSING DEPARTMENT Primary Care Provider [phone] Encounter Details Date Type Department Care Team (Late st Contact Info) Description 05/24/2020 Prep for Procedure [facility] [address] [place], [place] [id number] Enzo Jerome MD [address] [place] [phone] Social History Tobacco Use Types Packs/Day Years [...] Sex Assigned at Female 07/19/2018 3:31 PM CARTOGRAPHY/MAPPING TECHNICIAN Legal Sex Female 7:54 PM CDT Gender Identity Female 07/19/2018 3:31 PM CARTOGRAPHY/MAPPING TECHNICIAN Sexual Orientation Not on file 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 No / Unsure 05/25/2020 7:28 AM CDT documented as of this encounter Plan of Treatment Not on file documented as of this encounter Results * PRE-SURGICAL/PRE-PROCEDURE CORONAVIRUS (COVID 19) (05/25/2020 7:37 AM CDT) CORONAVIRUS SARS COV 2 PCR (RESP) NOT DETECTED NOT DETECTED 05/26/2020 7:05 PM CDT [facility] Comment: A Not Detected (negative) test result [...] providers and patients using the following websites: https://www.WiWide.Avantha/home/Covid-19/HCP/QuestIVD/fact- sheet.html https://www.WiWide.Avantha/home/Covid-19/Patients/ QuestIVD/fact-sheet.html This test has been authorized by the FDA under an Emergency Use Authorization (EUA) for use by authorized laboratories. Due to the current public health emergency, [facility] is receiving a high volume of samples [...] about COVID-19 can be found at the [facility] website: www.Smacktive.com/Covid19. Test performed at [facility] [place] [address] [place] [address] Director: AGAPITO SHARMA DO,MPH FIRST TEST NO 05/25/2020 7:27 AM CDT [facility] EMPLOYED IN HEALTHCARE UNKNOWN 05/25/2020 7:27 AM CDT [facility] SYMPTOMATIC DEFINED BY CDC NO 05/25/2020 7:27 AM CDT [facility] DATE OF SYMPTOM ONSET UNKNOWN 05/25/2020 9:45 AM CDT [facility] HOSPITALIZATION STATUS NO 05/25/2020 7:27 AM CDT [facility] PATIENT IN ICU NO 05/25/2020 7:27 AM CDT [facility] RESIDENT OF [facility] CARE NO 05/25/2020 7:27 AM CDT [facility] UNKNOWN 05/25/2020 9:45 AM CDT [facility] PATIENT'S RACE WHITE OR 05/25/2020 7:27 AM CDT [facility] ETHNICITY NONHISPANIC 05/25/2020 7:27 AM CDT [facility] SOURCE (QST) NASOPHARYNGEAL SWAB 05/25/2020 7:27 AM CDT [facility] NASOPHARYNGEAL SWAB / Unknown 05/25/2020 7:37 AM CDT us Enzo Jerome MD MICROBIOLOGY - GENERAL ORDERA BLES Final Result [facility] [address] [place] [address], [place] [phone] [facility] [address] [place] [address], documented in this encounter Visit Diagnoses Diagnosis Preop testing- Primary Preoperative examination, unspecified documented in this encounter Additional Health Concerns Infection Onset Date Last Indicated Resolved Time COVID-19 Rule Out 05/25/2020 05/25/2020 05/26/2020 7:06 PM CDT documented as of this encounter Care Teams Electro Mechanical Assembler Relationship Specialty Start Date End Date Maninder Danielson MD PCP - General INTERNAL MEDICINE 07/19/18 12/11/22 Betty Pinto, DHARMESH [address] [phone] PCP - General Nurse Practitioner Family 12/12/22 documented as of this encounter
--- OUTSIDE RECORDS SUMMARY | 2025-06-21 16:53 | XMS_ITS | Clinical Summary ---
Author Organization [facility] Administrative Offices Address [address] [place] [id number] Care Team Providers Care Research Microbiologist Name Role Phone Josh Smith MD Primary Care Provider [phone] Allergies Active Allergy Reactions Criticality Noted Date Comments Metformin Diarrhea Low 11/12/2022 Morphine Rash Medium 11/12/2022 Medications repaglinide (PRANDIN) 0.5 mg tablet Take 1 Tablet by mouth 3 times daily. 3 Active atorvastatin (LIPITOR) 20 mg tablet Take 20 mg by mouth daily. 3 Active amitriptyline (ELAVIL) 25 mg tablet Take 25 mg by mouth daily at bedtime. 3 Active albuterol sulfate HFA 90 mcg/actuation aerosol inhaler INHALE 2 PUFFS BY MOUTH FOUR TIMES DAILY NEEDED FOR SHORTNESS OF BREATH OR WHEEZING 2 Active semaglutide (Ozempic) 2 mg/dose (8 mg/3 mL) Pen Injector Inject 2 mg Subcutaneous every 7 days 3 mL 5 4 Active semaglutide (Ozempic) 2 mg/dose (8 mg/3 mL) Pen Injector 2 mg Subcutaneous weekly 84 days 9 mL 3 10/22/2023 12:11 PM COLLATING MACHINE OPERATOR 4 Active tirzepatide (Mounjaro) 10 mg/0.5 mL Pen Injector Inject 10 mg by subcutaneous injection every 7 days. 2 mL 3 02/29/2024 8:29 AM CDT 4 Active tirzepatide (Mounjaro) 12.5 mg/0.5 mL Pen Injector Inject 12.5 mg by subcutaneous injection every 7 days. 6 mL 3 04/21/2024 12:11 PM CDT 4 Active Active Problems Problem Noted Date Diagnosed Date Glaucoma 11/12/2022 Irritable bowel syndrome with diarrhea 3 Encounters Date Type Department Care Team Description 04/12/2025 External Device Data [facility] ABSTRACTION Provider, Abstract 04/11/2025 External Device Data [facility] ABSTRACTION Provider, Abstract 03/22/2025 External Device Data [facility] ABSTRACTION Provider, Abstract 03/22/2025 External Device Data [facility] ABSTRACTION Provider, Abstract 03/21/2025 External Device Data [facility] ABSTRACTION Provider, Abstract from Last 3 Months Immunizations Immunization Administration Dates Next Due (PREVNAR 20)(6 WKS UP) PNEUM OCOCCAL CONJUGATE VACCINE 20-VALENT (PCV20), POLYSACCHARIDE [id number] CONJUGATE, ADJUVANT 0.5 ML (PF) IM 11/12/2022 Family History Medical History Relation Name Comments Cervical Cancer Maternal Grandmother Relation Name Status Comments Brother 1 Alive Brother 2 Alive Brother 3 Alive Father Maternal Grandfather Maternal Grandmother Mother Paternal Grandfather Paternal Grandmother Sibling Alive Sister 1 Alive Sister 2 Alive Sister 3 Alive Son 1 Alive Son 2 Alive Son 3 Alive Social History Tobacco Use Types Packs/Day Years Used Date Smoking Tobacco: Never Smokeless Tobacco: Never Tobacco Cessation:Counseling Given: No Alcohol Use Standard Drinks/Week Comments Yes 0 (1 standard drink = 0.6 oz pur e alcohol) rarely Comments No Sex and Gender Information Value Date Recorded Sex Assigned at Not on file Legal Sex Female 11:24 PM CDT Gender Identity Not on file Sexual Orientation Not on file Last Filed Vital Signs Vital Sign Reading Time Taken Comments Blood Pressure 158/96 11/12/2022 3:55 PM COLLATING MACHINE OPERATOR Pulse 91 11/12/2022 3:21 PM COLLATING MACHINE OPERATOR Temperature - - Respiratory Rate 14 11/12/2022 3:21 PM COLLATING MACHINE OPERATOR Oxygen Saturation 99% 11/12/2022 3:21 PM COLLATING MACHINE OPERATOR Inhaled Oxygen Concentration - - Weight 80.3 kg (177 lb) 11/12/2022 3:21 PM COLLATING MACHINE OPERATOR Height 167.6 cm (5' 6) 11/12/2022 3:21 PM COLLATING MACHINE OPERATOR Body Mass Index 28.57 11/12/2022 3:21 PM COLLATING MACHINE OPERATOR Plan of Treatment Health Maintenance Due Date Last Done Comments DIABETES ANNUAL FOOT EXAM 1975 DIABETES ANNUAL RETINAL EXAM 1975 DIABETES MICROALBUMIN ANNUAL SCREEN 1975 BREAST CANCER SCREENING 1997 COLORECTAL SCREENING 2002 Colorectal Cancer Screening 2002 FIT-DNA Q 3 years 2002 FIT/FOBT Q 1 year 2002 Flex Sig/CT Colonography Q 5 years 2002 DTAP/TDAP/TD VACCINES (2 - T d or Tdap) 07/21/2020 07/21/2010 OSTEOPOROSIS SCREENING 2022 DIABETES HBA1C Q 6 MONTHS 08/02/20232022, 11/17/2022, 08/26/2021 LDL CHOLESTEROL ANNUAL 11/18/2023 11/17/2022 INFLUENZA VACCINE (#1) 2025 2, 06/25/2019, 06/25/2019 RSV VACCINE (60+ or ) (1 - 1-dose 75+ series) 01/08/2032 ZOSTER VACCINE Completed 04/01/2020, 10/16/2019 PNEUMOCOCCAL VACCINE 50+ YEARS Completed 11/12/2022 Procedures Procedure Name Priority Date/Time Associated Diagnosis Comments HEMOGLOBIN A1C Routine 01/30/2023 8:24 AM CDT Type 2 diabetes mellitus without complication, without long-term current use of insulin ([facility]) LIPID PANEL Routine 11/17/2022 6:39 AM CDT Type 2 diabetes mellitus without complication, without long-term current use of insulin ([facility]) from Last 3 Months or Most Recently Relevant to Health Maintenance Results * (ABNORMAL) HEMOGLOBIN A1C (01/30/2023 8:24 AM CDT) HEMOGLOBIN A1C 7.3(H) <5.7 % of total Hgb [facility] Comment: For someone without known diabetes, a hemoglobin A1c value of 6.5% or greater indicates that they may have diabetes and this should be confirmed with a follow-up test. For someone with known diabetes, a value <7% indicates that their diabetes is well controlled and a value greater than or equal to 7% indicates suboptimal control. A1c targets should be individualized based on duration of diabetes, age, comorbid conditions, and other considerations. Currently, no consensus exists regarding use of hemoglobin A1c for diagnosis of diabetes for children. ESTIMATED AVERAGE GLUCOSE (MG/DL) 163 mg/dL [facility] ESTIMATED AVERAGE GLUCOSE (MMOL/L) 9.0 mmol/L [facility] Comment: Test Performed at: [place] [address] [address] [phone] [place] Dior Contreras Blood 01/30/2023 8:24 AM CDT 01/30/2023 8:26 AM CDT us Josh Smith MD CHEMISTRY ORDERABLES Final Resu lt [facility] [phone] [place] [address] [address] [place] [phone] * (ABNORMAL) LIPID PANEL (11/17/2022 6:39 AM CDT) CHOLESTEROL 184 <200 mg/dL [facility] HDL 60 > OR = 50 mg/dL [facility] TRIGLYCERIDE 109 <150 mg/dL [facility] LDL CALCULATED 103(H) mg/dL (calc) [facility] Comment: Reference range: <100 Desirable range <100 mg/dL for primary prevention; <70 mg/dL for patients with CHD or diabetic patients with > or = 2 CHD risk factors. LDL-C is now calculated using the Williams-Dimitris calculation, which is a validated novel method providing better accuracy than the Friedewald equation in the estimation of LDL-C. Williams HART et al. BELLA. 2013;310(19): 2863-4397 (http://education.Affinity Systems.Bromium/faq/BCJ737) CHOL/HDL RATIO 3.1 <5.0 (calc) [facility] TOTAL NON-HDL CHOL(LDL+VLDL) 124 <130 mg/dL (calc) [facility] Comment: For patients with diabetes plus 1 major ASCVD risk factor, treating to a non-HDL-C goal of <100 mg/dL (LDL-C of <70 mg/dL) is considered a therapeutic option. FASTING:YES FASTING: YES Test Performed at: [facility] [address] [address] [phone] Laura Contreras MD Blood 11/17/2022 6:39 AM CDT 11/17/2022 6:40 AM CDT us Josh Smith MD CHEMISTRY ORDERABLES Final Resu lt [facility] [phone] [facility] [address] [address] [phone] from Last 3 Months or Most Recently Relevant to Health Maintenance Insurance [facility] MEDIC[facility] PART A HOSPITAL ONLY RX [facility] Commercial Care Teams Research Microbiologist Relationship Specialty Start Date End Date Josh Smith MD PCP - General Family Practice 11/12/22
== END 2025-06-21 14:36 | disposition home or self-care (01) ==
LOC: ANHFOHIMG 14:38
DX: Z12.31 Encounter for screening mammogram for malignant neoplasm of breast (principal)
CPT/HCPCS: 77063; 77067